=== PATIENT | male | born 1960 | race Caucasian/White ===

== ENCOUNTER 2016-12-18 10:12 | Day surgery (SDC) | payer OTHER ==
--- NOTE | 2016-12-20 12:27 | GI Report ---
REFERRING PHYSICIAN: Dr. Harish Alston BILLING REP: Grant Gaines MD PROCEDURE MEDICATION: Propofol as per anesthesia. INDICATIONS: This is a 56-year-old man who had adenomatous polyps removed from his colon 5 years ago at [facility]. He denies a family history of colorectal cancer. He denies any change in bowel habits or blood in the stool. He is 5 feet 10 inches and weighs 132 kilograms. PROCEDURE PERFORMED: Colonoscopy and polypectomy. PROCEDURE: An Olympus video colonoscope was advanced into the rectum and advanced to the cecum. The appendiceal orifice and terminal ileum look normal. On slow withdrawal, the cecum, ascending colon, and transverse colon with no obvious intraluminal lesions noted. In the mid-transverse colon at about 70 cm on withdrawal, patient had a 3 to 4 mm flat polyp removed with a cold snare. The descending colon and sigmoid with some redundancy and a few diverticula. Retroflexion of the rectum was normal. Patient tolerated the procedure well. FINDINGS: 1. A flat polyp removed from the transverse colon. 2. Diverticular disease of the colon. RECOMMENDATIONS: 1. Would increase fiber in the diet. 2. Pending the pathology of the polyp, consider re-looking at his colon within 5 years. cc: Dr. Harish Alston [facility]ALKathrine
== END 2016-12-18 10:13 ==
LOC: OPSURG 10:12
PROVIDERS: ATTEND Internal Medicine Gastroenterology
DX: D12.3 Benign neoplasm of transverse colon (principal); K57.30 Diverticulosis of large intestine without perforation or abscess without bleeding
CPT/HCPCS: 88305; J2704; J7120; 45385; S1016